=== PATIENT | female | born 1980 | race Caucasian/White ===

== ENCOUNTER → 2016-09-25 | Outpatient (CLI) | payer BC | END | disposition home or self-care (01) | LOC: GMA 20:32 | PROVIDERS: ATTEND Nurse Practitioner Family | DX: R50.9 Fever, unspecified (principal) ==

== ENCOUNTER 2016-09-27 13:15 | Observation (INO) | payer BC ==
--- NOTE | 2016-09-27 15:38 | HP ---
HISTORY OF PRESENT ILLNESS: This 36 year-old white female is direct admitted from Sandi's office at [facility] because of generally feeling very poorly and having a potassium of 2.9. Review of her chart reveals no previous potassiums available on the chart for comparison. She is currently a 3 para 2 and is 19 weeks . There was a question of a temperature of 100.3 earlier but it was not noted while in the hospital after admission. Two days ago she was seen in the clinic and was thought to have a urinary tract infection, and was started on Macrobid. Subsequent to review of the urinalysis and urine culture, revealed no significant bacteriuria. She has also had some nausea and vomiting, generalized malaise and some slight wheezing as well as some joint discomforts with these current symptoms. Her son is also suffering from recurrent Strep infections now being diagnosed as a Strep carrier. The patient is placed in the hospital for parenteral potassium supplementation. At this time, she does not wish to try oral potassium because of the risk of upsetting her stomach. The patient is noted to have had PKU as an enzyme deficiency since and is on a very complex, yet important, program of medications and enzyme supplementations as well as specialized protein supplements in order to help control it and allow the to progress nicely. Her care is cared for by Dr. Franco who is on maternity leave from her practice in [place]. She has also seen Dr. Us , machinery dismantler, as well. PAST MEDICAL HISTORY: 1. Asthma. 2. PKU which requires chronic specialty care. PAST SURGICAL HISTORY: 1. Tonsillectomy and adenoidectomy in 2013. CURRENT MEDICATIONS: Please refer to nurses' notes for a list of verified home medications. ALLERGIES: NONE. FAMILY HISTORY: She is adopted and does not know the other details of the family history. 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 She has never smoked. REVIEW OF SYSTEMS: Weight has been fairly stable, though slightly increasing. HEENT: No hearing or vision disturbances. Some evidence of fever and chills may be related, but some of it could be the hormone surges of with no fever at the present time. LUNGS: Generally clear with occasional wheezing evident. CARDIOVASCULAR: No significant palpitations or chest pains. ABDOMEN: Nausea and vomiting to some degree, though seemingly better. GENITOURINARY: History of recent dysuria and the possibility of a urinary tract infection, though on review of studies shows no specific evidence of a bacteriuria problem at this time recently looked at 2 days ago. Urinalysis today looks good. EXTREMITIES: No significant edema. NEUROLOGIC: The patient is awake, alert and oriented, and communicative with no focal neurological deficits. PHYSICAL EXAMINATION: VITAL SIGNS: Afebrile, pulse 108, blood pressure 127/80, pulse oximetry 98% on room air. GENERAL: The patient is awake, alert and oriented, and communicative. She is complaining of a headache and some generalized malaise symptoms for which she is given a Tylenol. HEENT: Within normal limits. NECK: Supple. CHEST: Lungs are clear. CARDIOVASCULAR: Heart tones regular. ABDOMEN: Slightly tender to palpation especially in the suprapubic area, but she is now approximately 19 weeks and the fundus of the uterus appears to be barely coming out of the pelvis at this time. EXTREMITIES: Well formed. NEUROLOGIC: Within normal limits. LABORATORY: White count is 5,900, hemoglobin 13.3, platelets 225,000 and 83% neutrophils. Chemistry shows sodium low at 132, while glucose is normal at 88, potassium very low at 2.9 with BUN 8, creatinine 0.59. Liver enzymes normal. Albumin 3. Urinalysis shows ketonuria and whether this is a cross testing for the Phenylketonuric state to be determined. Rare bacteria. No WBCs or RBCs noted at this time. No culture obtained. No x-rays obtained. ASSESSMENT: 1. Hypokalemia probable symptomatic with level of 2.9 requiring potassium parenterally as well as orally and reevaluation in the morning. 2. History of Phenylketonuria since now as a mother being closely followed in the clinic of her double cutter and certified driver examiner. 3. Intrauterine currently about 19 weeks of gestation. 4. Nausea and vomiting possibly related to the hypokalemia versus generalized malaise syndrome which may be viral in etiology or just being with attendant symptoms, especially in the deep pelvis suggesting a ligamental symptomatology. PLAN: Will continue with the Phenlyalanine diet and supplementation that she has currently been on at home. Will try some potassium by mouth as well as K- riders. Use Tylenol as needed for pain. Try a soft elevated carb diet with PKU precautions. EKG pending. Try Zofran p.r.n. nausea. Close followup with Dr. Franco or Dr. Us, and to call tomorrow if any questions might persist. Close followup suggested. #[id number] MTDD
[2016-09-27] MEDS ORDERED: ACETAMINOPHEN 325 MG TAB ONE (17:44)
[2016-09-27] MEDS ORDERED: MAGNESIUM HYDROXIDE 30 ML UD PO PRN (18:05)
[2016-09-27] MEDS ORDERED: SODIUM CHLORIDE 0.9% (FLUSH) 10 ML SYG IV PRN (18:05)
[2016-09-27] MEDS ORDERED: ACETAMINOPHEN 325 MG TAB PO PRN (18:05)
[2016-09-27] MEDS ORDERED: ONDANSETRON INJ 4 MG/2 ML VIAL IV PRN (18:17)
[2016-09-27] MEDS ORDERED: KCL 40 MEQ/WATER FOR INJECTION 40 MEQ in PREMIX BAG 1 BAG IVPB ONE (18:17)
[2016-09-27] MEDS: KCL 40MEQ/NS 1,000 ML IVS PRN (18:28)
[2016-09-27] MEDS ORDERED: NUTRITIONAL SUPPLEMENTS PO SCH (18:30)
[2016-09-27] MEDS ORDERED: KCL 40 MEQ/WATER FOR INJECTION 100 ML IVPB ONE (18:30)
[2016-09-27] MEDS ORDERED: IV SET AND CAP CHANGE INJ INJ SCH (18:30)
[2016-09-27] MEDS ORDERED: POTASSIUM CHLORIDE 20 MEQ TAB ONE (18:34)
[2016-09-27] MEDS: POTASSIUM CHLORIDE 10 MEQ TAB PO SCH ×2 (18:36→20:44)
--- NOTE | 2016-09-27 18:45 | PCM.CORE ---
Physician DVT/VTE - Nurse DVT Assessment & Total Each Risk Factor Represents 1 Point: Medical PT at Bed Rest DVT Assessment Score: 1 - 0-1 Low Risk Treatments: Early Ambulation, Low Risk no further treatment or intervention needed - 2 Moderate Risk Treatments: Sequential Compression Device
[2016-09-27] MEDS ORDERED: [UNRECOGNIZED DRUG - OTHER] PO SCH (21:00)
[2016-09-28] MEDS: KCL 40MEQ/NS 1,000 ML IVS PRN (05:31)
[2016-09-28 06:38] VITALS: BP 107/69; TEMP 98.6; O2SAT 96
[2016-09-28] MEDS ORDERED: PRENATAL VIT PO SCH (09:00)
[2016-09-28] MEDS ORDERED: [UNRECOGNIZED DRUG - OTHER] PO SCH (09:00)
[2016-09-28] MEDS ORDERED: FERROUS FUMARA PO SCH (09:00)
[2016-09-28] MEDS ORDERED: POTASSIUM CHLORIDE 10 MEQ TAB PO SCH (12:00)
--- NOTE | 2016-09-28 23:06 | DS ---
SUPERVISING PHYSICIAN: Bala Ortega M.D. DISCHARGE DIAGNOSIS: 1. Hypokalemia, symptomatic with a level of 2.9 requiring parenteral potassium replacement as well as oral replacement with a potassium this morning of 3.6. 2. History of PKU since , now as a mother being closely monitored following in the clinic by her renewals representative as well as her MARKETING SYSTEMS ANALYST. 3. Intrauterine currently about 19 weeks of gestation. 4. Nausea and vomiting probably related to the hypokalemia versus general malaise syndrome that is now normalized. HISTORY OF PRESENT ILLNESS: This is a 36 year-old white female who was directly admitted from [facility] after she had seen Sandi Elizondo, the [facility], for generally feeling poorly and having a potassium of 2.9. She has had no previous history of hypokalemia. She is currently 3 para 2 and is 19 weeks . She had a temperature earlier this week of 100.3 but was afebrile in the hospital. Two days ago, she was seen in the clinic and thought to have a urinary tract infection, and was started on Macrobid. Present urinalysis and urine culture showed no significant bacteriuria. She also had some nausea and vomiting, generalized malaise and some slight wheezing as well as some joint discomforts. Her son is currently suffering from recurrent Strep and was diagnosed as a Strep carrier. She was admitted to the hospital for parenteral potassium supplementation. At the time of admission, she was afraid to take oral potassium supplementation due to the nausea and vomiting. The patient is noted to have a PKU as an enzyme deficiency since and is on a very complex, yet important program of medications and enzyme supplementation as well as a specialized protein supplement in order to help control it and allow the to progress nicely. Her care is followed by Dr. Franco in [place]. She is presently on maternity leave and she has been seeing Dr. Us. HOSPITAL COURSE: The patient responded well to the IV supplementation as well as antiemetics. She was given some fluids. Later she was given some oral potassium and this morning her potassium is 3.6. Sodium 134. At this point, she can be discharged home. DISCHARGE PLAN: I spoke with Dr. Ram, ship rigger who is lamination technician for Dr. Us this morning. We discussed her discharge plan and followup. We will discharge her on Micro-K 10 mEq b.i.d. until she has a followup with Dr. Us on October 14. She will repeat a BMP to check her potassium in 7 to 10 days. She is also to resume her previous diet as well as her previous medications. She is to call Dr. Us's office or return to the hospital for any further complications or problems. Dr. Ortega is the collaborating physician and available for consultation. #[id number] MTDD
== END 2016-09-28 10:35 | disposition home or self-care (01) ==
LOC: LAB.O 13:15 → MS 15:10 → INTOOBSV 15:10
PROVIDERS: ADMIT Emergency Medicine; ATTEND Nurse Practitioner Acute Care
DX: O99.282 Endocrine, nutritional and metabolic diseases complicating pregnancy, second trimester (principal); E87.6 Hypokalemia; O21.8 Other vomiting complicating pregnancy; R50.9 Fever, unspecified; E70.1 Other hyperphenylalaninemias; J45.909 Unspecified asthma, uncomplicated; Z3A.19 19 weeks gestation of pregnancy
CPT/HCPCS: 36415 ×2; 80048; 80053; 81001; 85025; 93005; 96365; 96366 ×2; 96376; J3480 ×3

== ENCOUNTER → 2016-10-18 | Outpatient (CLI) | payer BC | END | disposition home or self-care (01) | LOC: LAB.O 13:30 | PROVIDERS: ATTEND Nurse Practitioner Acute Care | DX: E87.6 Hypokalemia (principal) ==

== ENCOUNTER → 2018-06-18 | Outpatient (CLI) | payer BC | LOC: GMAE 16:49 | PROVIDERS: ATTEND Family Medicine | DX: R63.5 Abnormal weight gain (principal) ==

== ENCOUNTER → 2018-07-23 | Outpatient (CLI) | payer BC | LOC: LAB.O 13:44 | PROVIDERS: ATTEND Medical Genetics Clinical Genetics (M.D.) | DX: E70.0 Classical phenylketonuria (principal) ==

== ENCOUNTER 2018-08-10 04:46 | Emergency (ER) | payer BC ==
[2018-08-10 05:02] VITALS: TEMP 98.4
--- NOTE | 2018-08-10 05:28 | ED.PDOC ---
History of Present Illness - General Source: patient Exam Limitations: no limitations - History of Present Illness Initial Comments: the patient is a 38-year-old female with a history of PKU presenting with right upper quadrant pain that has been intermittent over the last 3 or 4 nights, worse tonight. Mild nausea but no vomiting. No syncope or near syncope. No fevers. No diarrhea or constipation according to her. It is a little worse with movement. Questionably worse with eating. She does still have her gallbladder. No jaundice. No history of any gastritis or duodenitis. No history of significant urinary tract infections. No history of any diverticulitis. Timing/Duration: unsure Severity: moderate Improving Factors: nothing Worsening Factors: movement Associated Symptoms: malaise <Jake Ortega - Last Filed: 08/10/18 06:37> <Surjit Andrews - Last Filed: 08/10/18 09:09> - General Chief Complaint: Abdominal Pain Stated Complaint: rt side abd pain Time Seen by Provider: 08/10/18 05:07 - History of Present Illness Allergies/Adverse Reactions: Allergies NO KNOWN ALLERGY Allergy (Verified 08/15/12 13:50) Home Medications: Ambulatory Orders Sapropterin Dihydrochloride [Kuvan] 1,800 mg PO DAILY 09/29/13 Fluticasone Prop 0.05% Nasal [Flonase Nasal Tornado] 1 spray BNAS PRN 08/10/18 Lansoprazole [Prevacid] 30 mg PO DAILY #30 cap 08/10/18 Polyethylene Glycol 3350 [Miralax] 17 gm PO DAILY 20 Days #20 pckt 08/10/18 Review of Systems - Review of Systems Constitutional: States: no symptoms reported EENTM: States: no symptoms reported Respiratory: States: no symptoms reported Cardiology: States: no symptoms reported Gastrointestinal/Abdominal: States: abdominal pain, nausea Genitourinary: States: no symptoms reported Musculoskeletal: States: no symptoms reported Skin: States: no symptoms reported Neurological: States: no symptoms reported Endocrine: States: no symptoms reported All other Systems: No Change from Baseline <Jake Ortega - Last Filed: 08/10/18 06:37> Past Medical History (General) - Patient Medical History Hx Seizures: No Hx Stroke: No Hx Asthma: Yes - Chronic bronchitis. Hx of COPD: No Hx Congestive Heart Failure: No Hx Pacemaker: No Hx Hypertension: No Hx Diabetes: No Hx Renal Disease: No Hx MRSA: No Surgical History: tonsillectomy - Vaccination History Hx Influenza Vaccination: No - Social History Hx Alcohol Use: No Hx Substance Use: No Hx Physical Abuse: No Hx Emotional Abuse: No - Female History Hx Last Menstrual Period: 02/07/14 Patient : No Expected Date of Delivery:: 11/14/13 - Triage Comment ED Triage Comment: Pain on/off for past week. Worse today <Jake Ortega - Last Filed: 08/10/18 06:37> Family Medical History - Family History Mother Hx Family;Other: Pt is adopted, no known biological history. <Jake Ortega - Last Filed: 08/10/18 06:37> Physical Exam - Physical Exam General Appearance: Alert, Other - she is obviously uncomfortable Eye Exam: bilateral normal Ears, Nose, Throat: hearing grossly normal, normal ENT inspection Neck: full range of motion, supple Respiratory: lungs clear, normal breath sounds, no respiratory distress, no accessory muscle use Cardiovascular/Chest: normal peripheral pulses, regular rate, rhythm, no edema Peripheral Pulses: radial,right: 2+, radial,left: 2+, dorsalis pedis,right: 2+, dorsalis pedis,left: 2+ Gastrointestinal/Abdominal: soft, other - she does have right upper quadrant discomfort palpation. Worse with inhalation. Worse with movement. No bruising of the abdominal wall. No significant pain elsewhere. Rectal Exam: deferred Back Exam: no CVA tenderness, no vertebral tenderness Extremity: non-tender, normal inspection, no pedal edema, normal capillary refill Neurologic: design supervisor II-XII nml as tested, alert, normal mood/affect, oriented x 3 Skin Exam: normal color Comments: Vital Signs - 24 hr 08/10/18 04:58 Temperature 98.4 F Pulse Rate [ 81 Right] Respiratory 20 Rate Blood Pressure 128/80 [Left Arm] O2 Sat by Pulse 100 Oximetry <Jake Ortega - Last Filed: 08/10/18 06:37> Progress - Progress Progress: 08/10/18 06:40 the patient is a 38-year-old female presented to the emergency room secondary to right upper quadrant pain. CBC, CMP and coags, aside from mild hypokalemia are reassuring. She is receiving a dose of oral potassium. Final read on acute abdominal series is pending however there is a fairly large stool burden to the ascending and transverse colon which could certainly be a source for pain. if the urinalysis comes back clear, I'll plan on ordering a right upper quadrant ultrasound given the focal nature of the pain. Care to be assumed by oncoming ER physician. <Jake Ortega L - Last Filed: 08/10/18 06:37> - Results/Orders Results/Orders: Laboratory Results WBC 6.3 K/mm3 (4.8-10.8) 08/10/18 05:30 RBC 4.58 M/mm3 (4.20-5.40) 08/10/18 05:30 Hgb 13.4 gm/dL (12.0-16.0) 08/10/18 05:30 Hct 41.4 % (36.0-47.0) 08/10/18 05:30 MCV 90.2 fl (81.0-99.0) 08/10/18 05:30 MCH 29.3 pg (27.0-31.0) 08/10/18 05:30 MCHC 32.5 g/dL (33.0-37.0) L 08/10/18 05:30 RDW 13.9 % (11.5-14.5) 08/10/18 05:30 Plt Count 317 K/mm3 (130-400) 08/10/18 05:30 MPV 8.0 fl (7.40-10.4) 08/10/18 05:30 Absolute Neuts (auto) 3.80 K/uL (1.8-6.8) 08/10/18 05:30 Absolute Lymphs (auto) 1.70 K/uL (1.0-3.4) 08/10/18 05:30 Absolute Monos (auto) 0.50 K/uL (0.2-0.8) 08/10/18 05:30 Absolute Eos (auto) 0.30 K/uL (0.0-0.4) 08/10/18 05:30 Absolute Basos (auto) 0.10 K/uL (0.0-0.1) 08/10/18 05:30 Neutrophils % 60.2 % (42.0-78.0) 08/10/18 05:30 Lymphocytes % 26.5 % (20.0-50.0) 08/10/18 05:30 Monocytes % 7.9 % (2.0-9.0) 08/10/18 05:30 Eosinophils % 4.3 % (1.0-5.0) 08/10/18 05:30 Basophils % 1.1 % (0.0-2.0) 08/10/18 05:30 PT 9.7 SECONDS (9.0-10.9) 08/10/18 05:30 INR 0.97 (0.9-1.15) 08/10/18 05:30 PTT (SP) 24.6 SECONDS (21.8-31.6) 08/10/18 05:30 Sodium 136 mmol/L (135-145) 08/10/18 05:30 Potassium 3.2 mmol/L (3.6-5.0) L 08/10/18 05:30 Chloride 103 mmol/L (101-111) 08/10/18 05:30 Carbon Dioxide 25 mmol/L (21-31) 08/10/18 05:30 Anion Gap 11.2 (12-18) L 08/10/18 05:30 BUN 15 mg/dL (7-18) 08/10/18 05:30 Creatinine 0.61 mg/dL (0.6-1.3) 08/10/18 05:30 BUN/Creatinine Ratio 24.6 (10-20) H 08/10/18 05:30 Random Glucose 103 mg/dL (70-105) 08/10/18 05:30 Serum Osmolality 273.0 mOsm/L (275-295) L 08/10/18 05:30 Lactic Acid 1.4 mmol/L (0.5-2.2) 08/10/18 05:30 Calcium 9.0 mg/dL (8.4-10.2) 08/10/18 05:30 Total Bilirubin 0.3 mg/dL (0.2-1.0) 08/10/18 05:30 AST 16 IU/L (10-42) 08/10/18 05:30 ALT 14 IU/L (10-60) 08/10/18 05:30 Alkaline Phosphatase 44 IU/L (42-121) 08/10/18 05:30 Serum Total Protein 6.8 gm/dL (6.4-8.2) 08/10/18 05:30 Albumin 3.9 g/dl (3.2-5.5) 08/10/18 05:30 Globulin 2.9 gm/dL (2.3-3.5) 08/10/18 05:30 Albumin/Globulin Ratio 1.3 (1.1-1.9) 08/10/18 05:30 Amylase 57 U/L (28-100) 08/10/18 05:30 Lipase 35 U/L (22-51) 08/10/18 05:30 Serum HCG, Qual Negative (NEGATIVE) 08/10/18 05:54 Urine Color Yellow (Yellow) 08/10/18 07:00 Urine Appearance Turbid (Clear) 08/10/18 07:00 Urine pH 7.0 (4.5-7.8) 08/10/18 07:00 Ur Specific Pearson 1.020 (1.005-1.030) 08/10/18 07:00 Urine Protein Negative mg/dL 08/10/18 07:00 Urine Glucose (UA) Negative mg/dL (Negative) 08/10/18 07:00 Urine Ketones Negative mg/dL (NEGATIVE) 08/10/18 07:00 Urine Blood Negative (Negative) 08/10/18 07:00 Urine Nitrite Negative 08/10/18 07:00 Urine Bilirubin Negative (NEGATIVE) 08/10/18 07:00 Urine Urobilinogen 0.2 mg/dL (0.2-1.0) 08/10/18 07:00 Ur Leukocyte Esterase Negative (Negative) 08/10/18 07:00 Urine RBC 0-1 /hpf 08/10/18 07:00 Urine WBC 0-1 /hpf 08/10/18 07:00 Ur Epithelial Cells 0-1 /hpf 08/10/18 07:00 Urine Bacteria 0 08/10/18 07:00 THE PATIENT RESTING COMFORTABLY. GALLBLADDER SONOGRAM HAS BEEN ORDERED-IN [place] [facility]. GALLBLADDER SONOGRAM IS NEGATIVE FOR ACUTE PROCESS. THE PATIENT WILL BE DISCHARGED WITH A PPI AND F/U WITH DR. WETZEL. WILL CONSIDER HIDA SCAN AND ENDOSCOPY IF SYMPTOMS PERSIST. <Surjit Andrews - Last Filed: 08/10/18 09:09> Departure <Jake Ortega - Last Filed: 08/10/18 06:37> - Departure Time of Disposition: 09:05 <Surjit Andrews - Last Filed: 08/10/18 09:09> - Departure Clinical Impression: Hypokalemia Constipation Qualifiers: Constipation type: unspecified constipation type Qualified Code(s): K59.00 - Constipation, unspecified Gastritis Qualifiers: Gastritis type: unspecified gastritis Disposition: Discharge to Home or Self Care Condition: Fair Departure Forms: ED Discharge - Pt. Copy, Patient Portal Self Enrollment Instructions: DI for Abdominal Pain-Adult Referrals: POLI WETZEL MD [Primary Care Provider] - 1-2 Weeks Prescriptions: Lansoprazole [Prevacid] 30 mg PO DAILY #30 cap Polyethylene Glycol 3350 [Miralax] 17 gm PO DAILY 20 Days #20 pckt Home Medications: Ambulatory Orders Sapropterin Dihydrochloride [Kuvan] 1,800 mg PO DAILY 09/29/13 Fluticasone Prop 0.05% Nasal [Flonase Nasal Tornado] 1 spray BNAS PRN 08/10/18 Lansoprazole [Prevacid] 30 mg PO DAILY #30 cap 08/10/18 Polyethylene Glycol 3350 [Miralax] 17 gm PO DAILY 20 Days #20 pckt 08/10/18
[2018-08-10] MEDS ORDERED: PROMETHAZINE HCL INJ 25 MG/ML VIAL ONE (05:32)
[2018-08-10] MEDS ORDERED: LIDOCAINE HCL 2% (MOUTH-THROAT) 15 ML UD ONE (05:32)
[2018-08-10] MEDS ORDERED: ALUM & MAG HYDROX-SIMETHICONE 30 ML UD ONE (05:32)
[2018-08-10] MEDS ORDERED: SODIUM CHLORIDE 0.9% 50ML 50 ML ONE (05:32)
[2018-08-10] MEDS: SODIUM CHLORIDE 0.9% 1000ML 1,000 ML IVS ONE (05:41)
[2018-08-10] MEDS: ALUM & MAG HYDROX-SIMETHICONE 30 ML, LIDOCAINE VISCOUS 2% 15 ML PO ONE ×2 (05:41)
[2018-08-10] MEDS: KETOROLAC TROMETHAMINE INJ 30 MG/ML VIAL IV ONE (05:42)
[2018-08-10] MEDS: PROMETHAZINE HCL INJ 25 MG in SODIUM CHLORIDE 0.9% 50ML 50 ML IVPB ONE (05:42)
[2018-08-10] MEDS: ONDANSETRON ODT 8 MG TAB SL ONE (05:43)
[2018-08-10] MEDS: POTASSIUM CHLORIDE ELIXIR 20 MEQ/15 ML UD PO ONE (06:53)
--- NOTE | 2018-08-10 06:54 | RAD ---
EXAM: Acute abdominal series. INDICATION: Abdominal pain, acute. COMPARISON: None. FINDINGS: Cardiac silhouette: Unremarkable. Ivelisse: Unremarkable. Lobar consolidation: None. Pleural effusion: None. Pneumothorax: None. Other: None. Intraperitoneal free air: Negative. Bowel: No dilated loops of small bowel or air-fluid levels. There is a large amount of stool within the colon. Bones: Unremarkable. Other: None. IMPRESSION: Nonspecific, nonobstructed bowel gas pattern. Large amount of stool within the colon. Electronically signed by: Jackson Us MD 08/10/2018 6:52 AM CDT Workstation: [id number]
--- NOTE | 2018-08-10 08:52 | US ---
EXAM DESCRIPTION: Gall Bladder sonogram right upper quadrant CLINICAL HISTORY: RUQ PAIN COMPARISON: None Available. TECHNIQUE: Right upper quadrant ultrasound was performed. FINDINGS: Pancreas: Visualized portions of the pancreas are unremarkable. Bowel gas obscures some areas. Aorta/inferior vena cava: No aortic aneurysm. Normal inferior vena cava. Liver: The liver is homogeneous in texture with normal echogenicity of the hepatic parenchyma. Liver length of 16.8 cm is within normal limits. No focal liver lesion or intrahepatic bile duct dilatation. No liver surface irregularity. Normal appearance of the portal vein and hepatic veins. Gallbladder: Gallbladder appears normal with no intraluminal stones or wall thickening. Common bile duct: Normal caliber measuring 2.8 mm. Right kidney: Renal length is 11.2 cm. Normal cortical echogenicity. Cortical thickness is normal. No hydronephrosis is seen. No renal mass or shadowing calculus. IMPRESSION: No diagnostic abnormality is identified on sonographic examination of the right upper quadrant. Electronically signed by: Jose Aiken MD 08/10/2018 8:50 AM CDT
[2018-08-10 09:20] VITALS: BP 111/72; O2SAT 97
== END 2018-08-10 09:19 | disposition home or self-care (01) ==
LOC: ER 04:46
DX: K29.70 Gastritis, unspecified, without bleeding (principal); K59.00 Constipation, unspecified; E87.6 Hypokalemia; Z79.899 Other long term (current) drug therapy
CPT/HCPCS: 36415; 74019; 76705; 80053; 81001; 82150; 83605; 83690; 84703; 85025; 85610; 85730; A4216; J1885; J2550; J7030

== ENCOUNTER 2018-08-24 13:39 | Observation (INO) | payer BC ==
[2018-08-24] MEDS ORDERED: PIPERACILLIN/TAZOBACTAM 3.375 GM in SODIUM CHLORIDE 0.9% 100ML 100 ML IVPB ONE (14:58)
[2018-08-24] MEDS ORDERED: SODIUM CHLORIDE 0.9% 1000ML 1,000 ML IVS ONE (14:58)
[2018-08-24] MEDS ORDERED: KETOROLAC TROMETHAMINE INJ 30 MG/ML VIAL IV ONE (15:09)
[2018-08-24] MEDS ORDERED: PIPERACILLIN/TAZOBACTAM 3.375 GM VIAL IVPB ONE ×3 (15:11→20:01)
[2018-08-24] MEDS ORDERED: SODIUM CHLORIDE 0.9% 100ML 100 ML IVPB ONE ×2 (15:11→19:15)
--- NOTE | 2018-08-24 15:23 | RAD ---
EXAM: XR Abdomen 2 Views With XR Chest CLINICAL HISTORY: 38 years old and is Female; epigastric/ruq pain TECHNIQUE: Frontal view of the chest, frontal view of the abdomen/pelvis and upright or decubitus view of the abdomen. COMPARISON: No relevant prior studies available. FINDINGS: Limitations: None. Lungs: Unremarkable. No consolidation. Pleural space: Unremarkable. No pneumothorax. Heart: Unremarkable. No cardiomegaly. Mediastinum: Unremarkable. Intraperitoneal space: No free air. Gastrointestinal tract: Moderate colonic stool present sparing the rectosigmoid and proximal right colon. No distention. Bones/joints: Unremarkable. IMPRESSION: No acute findings. Electronically signed by: Ivette Mcneil MD 08/24/2018 3:21 PM CDT
--- NOTE | 2018-08-24 16:30 | CT ---
EXAM DESCRIPTION: Abdomen/Pelvis w/Contrast CLINICAL HISTORY: ruq pain, increased lft's COMPARISON: None Available TECHNIQUE: Contiguous axial images of the abdomen and pelvis were obtained followed by reconstruction images. This exam was performed according to our departmental dose-optimization program, which includes automated exposure control, adjustment of the mA and/or kV according to patient size and/or use of iterative reconstruction technique. FINDINGS: There is a small gallstone within the dependent portion of the gallbladder. Mild periportal edema could be secondary to avid administration of intravenous fluid. Mild intrahepatic bile duct dilatation is a consideration however considered less likely. Punctate areas of increased attenuation within the kidneys compatible with nonobstructive renal stones. Air-fluid levels within the colon could be secondary to a diarrheal state. Calcifications within the pelvis compatible with phlebolith. Cecum is located at the right mid abdomen. 2 cm cyst within the left adnexa compatible with an ovarian cyst. As per RP best practice protocol, no further follow-up recommended. The liver, spleen, pancreas and kidneys are otherwise within normal limits. There is no hydronephrosis. Adrenal glands are within normal limits. Aorta is of normal caliber and tapering. There is no free fluid in the abdomen or pelvis. There is no bowel obstruction. There is no stranding of the mesenteric fat to suggest an inflammatory response. The appendix is within normal limits. There is no pericecal inflammation. IMPRESSION: Cholelithiasis. The gallbladder is otherwise unremarkable by CT criteria. Correlation with a sonogram could be helpful for further evaluation. Air-fluid levels within the colon could be secondary to a diarrheal state. Electronically signed by: Aleks Jain MD 08/24/2018 4:28 PM CDT
--- NOTE | 2018-08-24 17:31 | ED.PDOC ---
History of Present Illness - General Chief Complaint: Abdominal Pain Stated Complaint: abdominal pain Time Seen by Provider: 08/24/18 13:46 Source: patient Exam Limitations: no limitations - History of Present Illness Initial Comments: the patient's 38-year-old female presenting to the emergency room secondary to right upper quadrant pain that started again this morning at around 7 AM. She was seen 2 weeks ago for similar symptoms. Laboratory work at that time was unimpressive and a right upper quadrant ultrasound was negative. No fevers. Mild nausea. Pain is localized to the right upper quadrant. No history of any significant gallstones. No pain elsewhere. Timing/Duration: 4-6 hours Severity: moderate Improving Factors: nothing Worsening Factors: eating Associated Symptoms: denies symptoms Allergies/Adverse Reactions: Allergies NO KNOWN ALLERGY Allergy (Verified 08/15/12 13:50) Home Medications: Ambulatory Orders Sapropterin Dihydrochloride [Kuvan] 1,800 mg PO DAILY 09/29/13 Fluticasone Prop 0.05% Nasal [Flonase Nasal [place]] 1 spray BNAS PRN 08/10/18 Lansoprazole [Prevacid] 30 mg PO DAILY #30 cap 08/10/18 Review of Systems - Review of Systems Constitutional: States: no symptoms reported EENTM: States: no symptoms reported Respiratory: States: no symptoms reported Cardiology: States: no symptoms reported Gastrointestinal/Abdominal: States: see HPI Genitourinary: States: no symptoms reported Musculoskeletal: States: no symptoms reported Skin: States: no symptoms reported Neurological: States: no symptoms reported Endocrine: States: no symptoms reported All other Systems: No Change from Baseline Past Medical History (General) - Patient Medical History Hx Seizures: No Hx Stroke: No Hx Asthma: Yes - Chronic bronchitis. Hx of COPD: No Hx Congestive Heart Failure: No Hx Pacemaker: No Hx Hypertension: No Hx Diabetes: No Hx Renal Disease: No Hx MRSA: No Surgical History: tonsillectomy - Vaccination History Hx Influenza Vaccination: No - Social History Hx Tobacco Use: No Hx Alcohol Use: No Hx Substance Use: No Hx Physical Abuse: No Hx Emotional Abuse: No - Female History Hx Last Menstrual Period: 02/07/14 Patient : No Expected Date of Delivery:: 11/14/13 Family Medical History - Family History Mother Family History: Unknown Hx Family;Other: Pt is adopted, no known biological history. Physical Exam - Physical Exam General Appearance: Alert, No apparent distress Eye Exam: bilateral normal Ears, Nose, Throat: hearing grossly normal, normal ENT inspection Neck: full range of motion, supple Respiratory: lungs clear, normal breath sounds, no respiratory distress, no accessory muscle use Cardiovascular/Chest: normal peripheral pulses, regular rate, rhythm, no edema Peripheral Pulses: radial,right: 2+, radial,left: 2+ Gastrointestinal/Abdominal: soft, other - right upperquadrant discomfort palpation. No definite palpable mass. Rectal Exam: deferred Back Exam: normal inspection, no CVA tenderness, no vertebral tenderness Extremity: normal range of motion, non-tender, normal inspection, no pedal edema, normal capillary refill Neurologic: spice grinder II-XII nml as tested, alert, normal mood/affect, oriented x 3 Skin Exam: normal color Comments: Vital Signs - 24 hr 08/24/18 08/24/18 08/24/18 13:51 14:00 15:00 Temperature 98.0 F Pulse Rate [ 74 61 75 left brachial] Respiratory 16 16 16 Rate Blood Pressure 125/71 119/75 131/80 [left brachial] O2 Sat by Pulse 99 95 99 Oximetry 08/24/18 15:30 Temperature Pulse Rate [ 73 left brachial] Respiratory 16 Rate Blood Pressure 96/59 [left brachial] O2 Sat by Pulse 98 Oximetry Progress - Progress Progress: 08/24/18 17:31 the patient's 38-year-old female that appears to have mild acute cholecystitis. She is being started on Zosyn. She has received a liter of IV fluids and some pain medications. CT scan was unimpressive which hopefully means we are catching it early. She may benefit from a right upper quadrant ultrasound tomorrow. She will need to remain on a liquid diet. Dr. Alegre has been contacted. The patient will be admitted for continued antibiotics and management. - Results/Orders Results/Orders: CT scan of abdomen and pelvisshows no obvious gallbladder dilation. No obvious dilation of the bile ducts. No pericholecystic fluid. Laboratory Tests 08/24/18 08/24/18 08/24/18 14:11 14:11 14:18 WBC 10.5 RBC 4.60 Hgb 13.6 Hct 40.8 MCV 88.7 MCH 29.6 MCHC 33.4 RDW 13.7 Plt Count 308 MPV 7.7 Absolute Neuts (auto) 9.30 H Absolute Lymphs (auto) 0.60 L Absolute Monos (auto) 0.50 Absolute Eos (auto) 0.00 Absolute Basos (auto) 0.00 Neutrophils % 88.8 H Lymphocytes % 5.5 L Monocytes % 5.1 Eosinophils % 0.1 L Basophils % 0.5 Sodium 134 L Potassium 3.7 Chloride 103 Carbon Dioxide 22 Anion Gap 12.7 BUN 13 Creatinine 0.64 BUN/Creatinine Ratio 20.3 H Random Glucose 118 H Serum Osmolality 269.4 L Calcium 8.6 Total Bilirubin 1.6 H AST 363 H ALT 275 H Alkaline Phosphatase 67 Serum Total Protein 7.1 Albumin 3.9 Globulin 3.2 Albumin/Globulin Ratio 1.2 Amylase 48 Lipase 35 Serum HCG, Qual Negative Urine Color Urine Appearance Urine pH Ur Specific [place] Urine Protein Urine Glucose (UA) Urine Ketones Urine Blood Urine Nitrite Urine Bilirubin Urine Urobilinogen Ur Leukocyte Esterase Urine RBC Urine WBC Ur Epithelial Cells Urine Bacteria Urine HCG, Qual Cancelled 08/24/18 16:00 WBC RBC Hgb Hct MCV MCH MCHC RDW Plt Count MPV Absolute Neuts (auto) Absolute Lymphs (auto) Absolute Monos (auto) Absolute Eos (auto) Absolute Basos (auto) Neutrophils % Lymphocytes % Monocytes % Eosinophils % Basophils % Sodium Potassium Chloride Carbon Dioxide Anion Gap BUN Creatinine BUN/Creatinine Ratio Random Glucose Serum Osmolality Calcium Total Bilirubin AST ALT Alkaline Phosphatase Serum Total Protein Albumin Globulin Albumin/Globulin Ratio Amylase Lipase Serum HCG, Qual Urine Color Yellow Urine Appearance Clear Urine pH 8.5 H Ur Specific [place] 1.015 Urine Protein Negative Urine Glucose (UA) Negative Urine Ketones Negative Urine Blood Negative Urine Nitrite Negative Urine Bilirubin Negative Urine Urobilinogen 0.2 Ur Leukocyte Esterase Negative Urine RBC 0 Urine WBC 0 Ur Epithelial Cells 3-5 Urine Bacteria Rare Urine HCG, Qual Departure - Departure Clinical Impression: Acute cholecystitis Disposition: Admit Patient Condition: Fair Departure Forms: ED Discharge - Pt. Copy, Patient Portal Self Enrollment Referrals: POLI WETZEL MD [Primary Care Provider] - 1-2 Weeks Home Medications: Ambulatory Orders Sapropterin Dihydrochloride [Kuvan] 1,800 mg PO DAILY 09/29/13 Fluticasone Prop 0.05% Nasal [Flonase Nasal [place]] 1 spray BNAS PRN 08/10/18 Lansoprazole [Prevacid] 30 mg PO DAILY #30 cap 08/10/18 Decision To Admit - Decistion To Admit Decision to Admit Reason: Medical Nature Decision to Admit Date: 08/24/18 Decision to Admit Time: 17:33
[2018-08-24] MEDS ORDERED: MORPHINE SULFATE INJ 10 MG/ML VIAL IV ONE (17:33)
--- NOTE | 2018-08-24 17:43 | HP ---
SUPERVISING PHYSICIAN: Fredi Evans M.D. CHIEF COMPLAINT: Right upper quadrant abdominal pain. HISTORY OF PRESENT ILLNESS: This is a 38 year-old female patient who presented to the Emergency Room secondary to right upper quadrant pain that started early this morning about 5:00 AM. She had actually been in the Emergency Room about 2 weeks ago and had similar complaints. At that time her sonogram was negative and she also had about 3 to 4 episodes. When she came to be Emergency Room this time, it started early this morning and the pain did not go away. She had some nausea without vomiting. There was no fever or chills. The right upper quadrant of her abdomen was quite tender with stabbing-like pains. In the E. R., her lab was done and WBCs were 10.5 with hemoglobin 13.6, hematocrit 40.8. She did have a left shift on her differential. Chemistries showed sodium 134, potassium 3.7, chloride 103, calcium 8.6. Total bilirubin was 1.6, AST 363, ALT 275, amylase 48 and lipase 35. Urinalysis was unremarkable. Abdominal x-ray showed no acute findings. CT of the abdomen showed cholelithiasis. The gallbladder was otherwise unremarkable by CT criteria. Correlation with sonogram could be helpful. She was given some Zosyn as well as some fluids. She was also given 1 IV injection of Toradol as well as some morphine. The Emergency Room doctor called Dr. Alegre and he said he would see the patient in consultation. I was called for hospital admission. PAST MEDICAL HISTORY: 1. Asthma. 2. PKU which she takes medications daily for. PAST SURGICAL HISTORY: 1. Tonsillectomy. CURRENT MEDICATIONS: 1. Fexofenadine. 2. Lansoprazole. 3. Fluticasone nasal. 4. Kuvan. ALLERGIES: FAMILY HISTORY: Unknown. She is adopted. SOCIAL HISTORY: She is . She lives in [place]. She denies any tobacco, ETOH or illicit drug use. REVIEW OF SYSTEMS: GENERAL: Negative for fever, chills or weight changes. HEENT: Negative for sinus symptoms, ear pain, vision changes or sore throat. RESPIRATORY: Negative for shortness of breath, coughing or wheezing. CARDIAC: Negative for chest pains, palpitations or tachycardia. GASTROINTESTINAL: As per History of Present Illness. GENITOURINARY: Negative for hematuria, dysuria or polyuria. SKIN: Negative for lesions or rashes. HEMATOLOGIC: Negative for easy bruising or blood clotting problems. NEUROLOGIC: Negative for headaches, seizures or dizziness. PHYSICAL EXAMINATION: VITAL SIGNS: Temperature 98.1, heart rate 74, blood pressure 113/73, respiratory rate 16, O2 sat 97% on room air. GENERAL: This is a 38 year-old female patient lying in her hospital bed. She is in no acute distress. HEENT: Normocephalic and atraumatic. Pupils are equal and reactive. Oropharynx is clear. NECK: Supple without mass. RESPIRATORY: Essentially clear to auscultation bilaterally. CHEST: There is equal rise and fall of the chest with inspiration and expiration. CARDIOVASCULAR: Regular rate and rhythm. GASTROINTESTINAL: Abdomen is soft. It is nondistended. She has some discomfort when palpating the right upper quadrant. There is no rebound tenderness or guarding. EXTREMITIES: No clubbing, cyanosis or edema. SKIN: Warm and dry. NEUROLOGIC: She is awake, alert and oriented times three. Cranial nerves II- XII are grossly intact. LABORATORY: Labs and films are as per the History of Present Illness. ASSESSMENT: 1. Cholelithiasis with a normal amylase and lipase. Her liver enzymes are slightly elevated. She has a normal white count but she does have a left shift on her differential. 2. Phenylketonuria requiring special medication. 3. Mild asthma presently on no medications. 4. Seasonal allergies. PLAN: We will place the patient in Observation. She can have a bland diet tonight but she will be NPO at midnight. I have consulted Dr. Alegre and he will decide if she needs a sonogram in the morning. I have done routine lab and put her on a scheduled dose of Toradol for pain. I have also given her some p.r.n. morphine. She will have primary IV fluids. I have also given her Protonix for ulcer prophylaxis. Will hold on the Lovenox for now, but will give her SCDs for DVT prophylaxis. Her home medications have been restarted. She can discuss with Dr. Alegre in the morning when she will be able to take her medications for her PKU. Otherwise we will continue to monitor closely and follow as needed. [facility][id number] [facility]
[2018-08-24] MEDS ORDERED: LORATADINE 10 MG TAB PO PRN (19:06)
[2018-08-24] MEDS: KCL 20MEQ/D5NS 1,000 ML IVS PRN (19:29)
[2018-08-24] MEDS: IV SET AND CAP CHANGE INJ INJ SCH (19:30)
[2018-08-24] MEDS: SODIUM CHLORIDE 0.9% (FLUSH) 10 ML SYG IV SCH (19:30)
[2018-08-24] MEDS ORDERED: FLUTICASONE PROP 0.05% NASAL 16 GM BTTL BNAS SCH (19:30)
[2018-08-24] MEDS: PIPERACILLIN/TAZOBACTAM 3.375 GM in SODIUM CHLORIDE 0.9% 100ML 100 ML IVPB SCH (19:30)
[2018-08-24] MEDS ORDERED: SODIUM CHL 0.9% 100ML MINI-BAG 100 ML IVPB ONE (20:02)
[2018-08-24] MEDS: KETOROLAC TROMETHAMINE INJ 30 MG/ML VIAL IV SCH (22:23)
[2018-08-24] MEDS ORDERED: PANTOPRAZOLE SODIUM TAB 40 MG PO ONE (23:30)
[2018-08-25] MEDS: PIPERACILLIN/TAZOBACTAM 3.375 GM in SODIUM CHLORIDE 0.9% 100ML 100 ML IVPB SCH ×3 (03:02→19:23)
[2018-08-25] MEDS: KETOROLAC TROMETHAMINE INJ 30 MG/ML VIAL IV SCH ×3 (03:39→15:57)
[2018-08-25] MEDS ORDERED: PANTOPRAZOLE SODIUM IV 40 MG VIAL IV SCH (06:30)
[2018-08-25] MEDS: SODIUM CHLORIDE 0.9% (FLUSH) 10 ML SYG IV SCH ×2 (09:11→21:13)
[2018-08-25] MEDS: [UNRECOGNIZED DRUG - OTHER] PO SCH (09:11)
--- NOTE | 2018-08-25 09:51 | CONS ---
DATE OF CONSULTATION: 08/25/18 HISTORY OF PRESENT ILLNESS: The patient is a 38-year-old female who was seen in the Emergency Room yesterday evening after a recurrence of right upper quadrant abdominal pain yesterday morning. She had been in the Emergency Room 2 weeks ago with similar complaints and had a negative ultrasound of the abdomen. She has had multiple episodes since. With this episode, she has had some nausea without vomiting, but no fever or chills. She underwent a CT scan that showed possible cholelithiasis and possible minimal dilation of the intrahepatic biliary tree. PAST MEDICAL HISTORY: 1. PKU. 2. Asthma. PAST SURGICAL HISTORY: 1. Tonsillectomy. MEDICATIONS: 1. Fexofenadine. 2. Lansoprazole. 3. Fluticasone. 4. Kuvan. ALLERGIES: NO KNOWN DRUG ALLERGIES. FAMILY HISTORY: She is adopted. SOCIAL HISTORY: She is . She takes care of her children at home. She does not use tobacco, alcohol or drugs. She has had no travel outside the country. She has city water and she is on her low-protein diet for her PKU. She eats high carbs and high fat. There has been no change in her diet. REVIEW OF SYSTEMS: Unremarkable. Specifically, no shortness of breath, cough or wheezing. No chest pain. No hematuria, dysuria. No change in her bowel habits. No weight loss. PHYSICAL EXAMINATION: GENERAL: The patient is awake, alert, cooperative, in no acute distress. VITAL SIGNS: The patient is currently afebrile, normotensive. HEENT: Sclerae are muddy. Mucous membranes moist. NECK: Without adenopathy. BACK: Without CVA tenderness. CHEST: Equal breath sounds bilaterally. HEART: Regular rhythm. ABDOMEN: Soft, tender in the right upper quadrant without guarding or mass. PELVIC/RECTAL: Deferred. EXTREMITIES: Without cyanosis, clubbing or edema. LABORATORY: Bilirubin 3 this morning. It was 1.6 in the Emergency Room. AST 1259 and ALT 1464, up from 363 and 275. Her amylase and lipase were normal. HCG normal. Potassium 3.6 this morning. Creatinine 0.57. White count 4.9, hemoglobin 13, 67% neutrophils. Urine is clear. CT scan of the abdomen revealed possibly mild intrahepatic bile duct dilation, possibly nonobstructive renal stones and some periportal edema. There is a single small gallstone in the dependent portion of the gallbladder. ASSESSMENT: 1. Right upper quadrant abdominal pain. 2. Elevated liver function tests. 3. Cholelithiasis. 4. Phenylketonuria (PKU). PLAN: The liver functions are elevated somewhat higher than when one would except with biliary colic even with an obstructive pattern with the bilirubin 3. There has been no history of significant risk exposure for hepatitis and there is no history for acetaminophen ingestion or alcohol. The plan will be to obtain an ultrasound this morning. If there is biliary obstruction, we will consider cholecystectomy with cholangiography and also consideration for gastroenterology consultation as early as tomorrow. [facility][id number] [facility]
--- NOTE | 2018-08-25 10:36 | US ---
EXAM DESCRIPTION: Abdomen,Complete CLINICAL HISTORY: rt uq abdm pain,elevated lft's COMPARISON: None Available. TECHNIQUE: Complete abdominal ultrasound FINDINGS: Visualized portions of the pancreas are unremarkable. No peripancreatic fluid. Bowel gas obscures some areas. Normal caliber of the aorta. Normal appearance of the inferior vena cava. Liver parenchyma is homogeneous in texture with normal echogenicity. No liver mass or intrahepatic bile duct dilatation. No liver surface irregularity. Normal appearance of hepatic veins and portal vein. Gallbladder appears mildly thick-walled with a small echogenic focus in the lumen measuring 4 mm. This could be a tiny polyp or small nonshadowing stone. Gallbladder wall thickening without significant distention is a nonspecific finding which may be related to liver disease, heart disease or kidney disease or hypoalbuminemia. Radionuclide hepatobiliary scan may be helpful to demonstrate cystic duct patency in clinically equivocal cases. Sonographic Jose sign was recorded as negative. Common bile duct is normal in caliber measuring 4.9 mm. The right kidney measures 10.7 cm in length. Normal renal cortical echogenicity. The renal cortical thickness appears normal. No right renal mass, shadowing stone or cyst. There is no hydronephrosis. Spleen is normal in size. No focal splenic lesion. The left kidney measures 10.8 cm in length. Normal renal cortical echogenicity. The renal cortical thickness appears normal. No left renal mass, shadowing stone or cyst. There is no hydronephrosis. IMPRESSION: Thick-walled gallbladder with tiny echogenic polyp or nonshadowing stone and negative sonographic Jose sign. See above. Electronically signed by: Jose Aiken MD 08/25/2018 10:34 AM CDT
[2018-08-25] MEDS ORDERED: SODIUM CHLORIDE 0.9% 100ML 100 ML IVPB ONE ×2 (11:39→19:19)
[2018-08-25] MEDS ORDERED: PIPERACILLIN/TAZOBACTAM 3.375 GM VIAL IVPB ONE ×2 (11:39→19:18)
[2018-08-25] MEDS: KCL 20MEQ/D5NS 1,000 ML IVS PRN (11:43)
[2018-08-25] MEDS: MORPHINE SULFATE INJ 10 MG/ML VIAL IV PRN ×2 (12:52→20:57)
--- NOTE | 2018-08-25 13:18 | PN ---
SUPERVISING PHYSICIAN: Tung Evans MD DATE: 08/25/18 SUBJECTIVE: The patient is lying in bed. She is awake. She has no complaints of nausea or vomiting. She does continue complaints of right upper quadrant pain although it is not as bad as it was. We discussed her medical history. She has not taken any unusual medications or drugs recently, but she did say her PKU medications were concerning for some liver damage, but she has been taking them for years and has had no problems with them. She also has had no unprotected sex or any other concerns that may cause her liver functions to rise. OBJECTIVE: VITAL SIGNS: Temperature 98.3. Heart rate 72. Blood pressure 110/75. Respiratory rate 16. O2 saturation 99% on room air. RESPIRATORY: Essentially clear to auscultation bilaterally. CARDIAC: Regular rate and rhythm. GASTROINTESTINAL: Abdomen is soft, nondistended. It is mildly tender in the right upper quadrant. Bowel sounds are positive. NEUROLOGIC: Awake, alert and oriented times three. LABORATORY: WBCs 4.9, hemoglobin 13, hematocrit 38.9. Electrolytes are basically within normal limits except for calcium slightly low at 8.1. Bilirubin 3, AST 1259, ALT 1464. Abdominal ultrasound shows thick walled gallbladder with tiny echogenic polyps or non-shadowing stone or negative sonographic Jose's sign. All other labs and films have been reviewed via the EMR. ASSESSMENT: 1. Cholelithiasis with a normal amylase and lipase. Her abdominal sonogram showed gallbladder wall thickening. 2. Elevated liver enzymes. Her liver enzymes iglesia exponentially overnight. 3. Phenylketonuria. requiring special medication. 4. Mild asthma, presently on no medications. 5. Seasonal allergies. PLAN: We will continue present supportive care. I spoke with Dr. Alegre this morning and he felt like although she does have thickened wall of her gallbladder and a possible stone, he felt her gallbladder was not the cause of her elevated liver function tests. He recommended that we consult GI tomorrow and I have consulted Dr. Hurtado tomorrow to see the patient. I have ordered some routine labs for in the morning. She will resume her diet. I have sent dietary to see her as she has special dietary needs due to her PKU. I will also discontinue her IV fluids and hopefully after she sees Dr. Hurtado tomorrow she can be discharged home with close followup with Dr. Alegre as well as her primary care physician, Dr. Evans. [facility][id number] [facility]
[2018-08-25] MEDS: SODIUM CHLORIDE 0.9% (FLUSH) 10 ML SYG IV PRN (20:59)
[2018-08-25] MEDS: ONDANSETRON INJ 4 MG/2 ML VIAL IV PRN (21:06)
[2018-08-26] MEDS ORDERED: PIPERACILLIN/TAZOBACTAM 3.375 GM VIAL IVPB ONE ×4 (02:39→23:04)
[2018-08-26] MEDS ORDERED: SODIUM CHLORIDE 0.9% 100ML 100 ML IVPB ONE ×4 (02:40→23:04)
[2018-08-26] MEDS: PIPERACILLIN/TAZOBACTAM 3.375 GM in SODIUM CHLORIDE 0.9% 100ML 100 ML IVPB SCH ×3 (03:20→19:30)
[2018-08-26] MEDS: SODIUM CHLORIDE 0.9% (FLUSH) 10 ML SYG IV PRN (03:20)
[2018-08-26] MEDS: MORPHINE SULFATE INJ 10 MG/ML VIAL IV PRN ×2 (07:57→13:28)
[2018-08-26] MEDS: ONDANSETRON INJ 4 MG/2 ML VIAL IV PRN ×2 (07:57→19:52)
[2018-08-26] MEDS: SODIUM CHLORIDE 0.9% (FLUSH) 10 ML SYG IV SCH ×2 (09:34→22:42)
[2018-08-26] MEDS: [UNRECOGNIZED DRUG - OTHER] PO SCH (10:12)
--- NOTE | 2018-08-26 13:17 | MRI ---
EXAM DESCRIPTION: MRI abdomen/MRCP CLINICAL HISTORY: Abdomen pain. Abnormal gallbladder sonogram. Cholelithiasis COMPARISON: None. TECHNIQUE: Multiplanar, multisequence MR images of the abdomen. 3-D MIPS FINDINGS: Wall thickening with diffuse edema throughout the gallbladder wall. The fluid signal intensity throughout the gallbladder wall is different on T1-weighted images compared to the intraluminal contents of the gallbladder which is slightly bright T1 likely related to the protein content of the bile. Previous CT demonstrated a couple of tiny calcifications along the wall of the gallbladder, small stones. There is also a tiny stone in the cystic duct on the previous CT series 2 image 24. This is seen on axial T2 series 501 image 20. No stone identified in the extrahepatic common bile duct. Normal tapering distally. Minimally prominent proximal intrahepatic ducts. No pancreatic duct dilation No focal hepatic parenchymal abnormality. Normal appearance of the spleen, pancreas, adrenal glands and kidneys No mass lesion or inflammatory process seen in the stomach or in the visualized small and large intestine IMPRESSION: Acute cholecystitis. Diffuse gallbladder wall edema. A tiny stone is seen in the cystic duct . Otherwise normal MRCP. No choledocholithiasis. Electronically signed by: Bala Rey MD 08/26/2018 1:14 PM CDT
--- NOTE | 2018-08-26 13:18 | CONS ---
DATE OF CONSULTATION: 08/26/18 CHIEF COMPLAINT: Right upper quadrant abdominal georges. REASON FOR CONSULTATION: Abnormal liver tests, right upper quadrant pain, abnormal imaging of the biliary tract. HISTORY OF PRESENT ILLNESS: This is a 38-year-old female who presented to the Emergency Room two days ago with right upper quadrant pain. The pain started at 5 AM that morning, woke her up from her sleep. It gradually got worse, described as a cramping pain. It was rated as severe. The pain did not radiate. It is was associated with nausea and vomiting. She denies fever, chills, change in bowel habits, melena, hematochezia or hematemesis. She had a prior episode approximately two weeks before where she presented to the Emergency Room and at that time, her workup was negative with normal labs. In the Emergency Room, she had elevated liver tests, AST 363, ALT 275, bilirubin 1.6. These numbers all escalated to AST and ALT above 1000 the next day, bilirubin 3. CT scan of the abdomen showed cholelithiasis, thickened gallbladder and mildly prominent intrahepatic and extrahepatic bile ducts. Ultrasound the next day showed a bile duct of 5 mm, single echogenic stone, gallbladder wall thickening, but a negative Jose's sign. General surgery with Dr. Alegre was consulted. He recommended GI evaluation. She has no prior admissions like this. She has no family history of liver disease. PAST MEDICAL HISTORY: 1. PKU. 2. Asthma. PAST SURGICAL HISTORY: 1. Tonsillectomy. CURRENT MEDICATIONS: 1. Kuvan. 2. [place]. ALLERGIES: NO KNOWN DRUG ALLERGIES. FAMILY HISTORY: She is adopted, so family history is unknown. SOCIAL HISTORY: She does not smoke, drink or do any drugs. She lives in [place]. REVIEW OF SYSTEMS: Ten-point review of systems was performed. It is negative except for as above in the history of present illness. PHYSICAL EXAMINATION: VITAL SIGNS: Temperature 98.1. Heart rate 74. Blood pressure 115/73. Respiratory rate 16. Oxygen saturation 97% on room air. GENERAL: No acute distress. HEENT: Normocephalic, atraumatic. Pupils equal and reactive. NECK: Supple without masses. RESPIRATORY: Clear to auscultation bilaterally. No rales or rhonchi. HEART: Regular rate and rhythm. No tachycardia. ABDOMEN: Soft. There is tenderness to palpation in the right upper quadrant without rebound or guarding. She has normoactive bowel sounds. EXTREMITIES: No cyanosis, clubbing or edema. NEUROLOGIC: She is alert and oriented times three. Cranial nerves II-XII are grossly intact. SKIN: Warm and dry. No evidence of jaundice. LABORATORY/IMAGING: Labs were reviewed per history of present illness. Is personally reviewed and interpreted her MRCP images. She has mild prominence of the bile duct at 6 mm at the level of the mid common bile duct. There is no filling defect, no evidence of choledocholithiasis. Her gallbladder does appear inflamed with diffuse gallbladder wall thickening. ASSESSMENT/PLAN: This is a 38-year-old female who was admitted with abnormal liver tests, cholelithiasis and mild prominence of the bile duct. I suspect she has acute cholecystitis and has recent biliary obstruction and has likely passed a gallstone. I recommend continued IV antibiotics, IV fluids. I spoke with Dr. Alegre and I recommend laparoscopic cholecystectomy with intraoperative cholangiogram. Other considerations include viral hepatitis. I agree with viral hepatitis serologies as already performed. The patient can followup in GI clinic one to two months after discharge here in [place]. #[id number] [facility]
[2018-08-26] MEDS ORDERED: LACTATED RINGERS 1,000 ML IVS PRN (13:40)
--- NOTE | 2018-08-26 21:31 | PN ---
DATE: 08/26/18 SUPERVISING PHYSICIAN: Fredi Evans M.D. SUBJECTIVE: The patient continues to be nauseated as well as have some mild right upper quadrant pain on palpation. She has been afebrile. She is reporting no diarrhea. No chest pains or shortness of breath. OBJECTIVE: VITAL SIGNS: Afebrile, temperature 98.5, pulse 83, blood pressure 113/73, respirations 16, satting 97% on room air. Weight is 98.5 kg. GENERAL: The patient does appear ill and uncomfortable due to some nausea. She is alert but appears to be in no acute distress. CHEST: Lungs were clear to auscultation bilaterally. HEART: regular rate and rhythm. ABDOMEN: Soft with some tenderness on palpation of the right upper quadrant. No rebound or guarding with normal bowel sounds. EXTREMITIES: Without any clubbing, cyanosis or edema. NEUROLOGIC: She is alert and oriented times three. SKIN: Warm and dry. No evidence of jaundice. LABORATORY: White count remains stable at 6,700, hemoglobin 12.7, hematocrit 39.0, platelet count 279,000. Differential shows to be without a left shift. Chemistries showed normal electrolytes with BUN 10, creatinine 0.7. Bilirubin is down to 2, AST is down to 419, ALT is down to 1101, alkaline phosphatase remains normal at 106. Hepatitis panel is pending. RADIOLOGY: Abdominal MRI status post MRCP per radiology interpretation shows acute cholecystitis with diffuse gallbladder wall thickening and tiny stones seen within the cystic duct. Otherwise normal MRCP. No choledocholithiasis. ASSESSMENT: 1. Acute cholecystitis as noted on MRCP. 2. Elevated liver enzymes likely due to passage of a stone with enzymes slowly returning to baseline levels. 3. History of phenylketonuria on Kuvan. 4. Mild asthma without any signs of exacerbation. 5. Seasonal allergies. PLAN: The patient was seen in consultation by both Dr. Alegre and Dr. Hurtado. Given the findings on MRCP, the plan is to do a laparoscopic cholecystectomy in the morning per Dr. Alegre. The patient will be on clear liquids tonight and then at midnight made NPO. Will recheck labs in the morning. Continue with IV fluids. Anticipate surgery in the morning. Until she can transition to outpatient management will continue to monitor and treat as needed. #[id number] [facility]
[2018-08-27] MEDS ORDERED: KCL 20MEQ/D5 1/2NS 1,000 ML IVS PRN (02:00)
[2018-08-27] MEDS: PIPERACILLIN/TAZOBACTAM 3.375 GM in SODIUM CHLORIDE 0.9% 100ML 100 ML IVPB SCH ×3 (03:02→21:03)
[2018-08-27] MEDS: MORPHINE SULFATE INJ 10 MG/ML VIAL IV PRN (03:52)
[2018-08-27] MEDS ORDERED: KETOROLAC TROMETHAMINE INJ 30 MG/ML VIAL ONE (07:00)
[2018-08-27] MEDS ORDERED: raNITIdine HCL INJ 25 MG/ML VIAL ONE (07:00)
[2018-08-27] MEDS ORDERED: METOCLOPRAMIDE HCL INJ 10 MG/2 ML VIAL ONE (07:00)
[2018-08-27] MEDS ORDERED: LIDOCAINE 1% 10 ML VIAL INJ ONE (07:00)
[2018-08-27] MEDS ORDERED: HYDROmorphone HCL INJ 2 MG/ML VIAL ONE (07:00)
[2018-08-27] MEDS ORDERED: PROPOFOL 200 MG/20 ML VIAL IV ONE (07:00)
[2018-08-27] MEDS ORDERED: DEXAMETHASONE INJ 10 MG/ML VIAL ONE (07:00)
[2018-08-27] MEDS ORDERED: HEPARIN SODIUM (PORCINE) 10,000 UNITS/ML VIAL ONE (08:43)
[2018-08-27] MEDS ORDERED: BUPIVACAINE 0.25% W/EPI 50 ML VIAL INJ ONE (08:43)
[2018-08-27] MEDS: SODIUM CHLORIDE 0.9% (FLUSH) 10 ML SYG IV SCH (09:11)
[2018-08-27] MEDS ORDERED: MIDAZOLAM INJ 5 MG/5 ML VIAL ONE (09:15)
[2018-08-27] MEDS ORDERED: fentaNYL CITRATE INJ 50 MCG/ML AMP ONE (09:16)
[2018-08-27] MEDS ORDERED: ROCURONIUM BROMIDE 10 MG/ML VIAL ONE (09:16)
[2018-08-27] MEDS ORDERED: ELECTROLYTE-A 1,000 ML IVS ONE (09:46)
[2018-08-27] MEDS: [UNRECOGNIZED DRUG - OTHER] PO SCH (10:19)
[2018-08-27] MEDS: PIPERACILLIN/TAZOBACTAM 3.375 GM VIAL IVPB ONE ×2 (10:30→11:25)
[2018-08-27] MEDS ORDERED: LACTATED RINGERS 1,000 ML ONE (10:52)
--- NOTE | 2018-08-27 11:00 | RAD ---
Intraoperative views from a cholangiogram. Indication: IOC Impression: Cannulation of the cystic duct demonstrates filling of the cystic duct, intrahepatic biliary ducts, common bile duct, and small bowel without obstruction or stricture. Fluoroscopy time 6 seconds. Images submitted 2 Electronically signed by: Geoff Kolb MD 08/27/2018 10:58 AM CDT
[2018-08-27] MEDS ORDERED: SUGAMMADEX SODIUM 200 MG/2 ML VIAL IV ONE (11:06)
[2018-08-27] MEDS ORDERED: HYDROcodone 5MG/APAP 325MG 1 EA TAB PO PRN (11:11)
[2018-08-27] MEDS: SODIUM CHLORIDE 0.9% 100ML 100 ML IVPB ONE ×2 (11:25→11:53)
[2018-08-27] MEDS: HYDROmorphone HCL INJ 2 MG/ML VIAL ONE ×5 (11:39→12:19)
--- NOTE | 2018-08-27 11:45 | OP ---
DATE OF PROCEDURE: 08/27/18 PREOPERATIVE DIAGNOSIS: 1. Acute cholecystitis and cholelithiasis. POSTOPERATIVE DIAGNOSIS: 1. Acute cholecystitis and cholelithiasis. PROCEDURE: 1. Laparoscopic cholecystectomy with intraoperative cholangiography using fluoroscopy. SURGEON: Arnel Alegre MD. INSURANCE BILLING CLERK: None. ANESTHESIA: Local infiltration of 0.25% Marcaine with epinephrine and general endotracheal anesthesia. INDICATION: The patient is a 38-year-old female who has had several weeks of episodic right upper quadrant pain. She was seen in the Emergency Room previously and had a normal ultrasound of the gallbladder. She was sent home. She re-presented with the same symptoms. CT scan showed a possible gallstone. She had elevated liver function tests. She was admitted and her bilirubin went up to 3 and her AST and ALT were both over 1000. She had no reasons to have hepatitis, however, those numbers were quite high despite the fact that she had an ultrasound showing normal bile duct except mildly dilated intrahepatic duct. GI consultation was obtained yesterday along with an MRCP which revealed no stones in the duct, but a thickened gallbladder wall with edema. The patient was brought to the Surgical Suite today for cholecystectomy after the risks, benefits and alternatives to the procedure were discussed with the patient and all questions were answered. FINDINGS: The gallbladder wall was thickened, it was bile stained, it was edematous. Intraoperative cholangiography revealed free flow into the duodenum with no filling defects or strictures noted. No other pathology was identified. DESCRIPTION OF PROCEDURE: After adequate general endotracheal anesthesia was obtained, the patient was prepped and draped in the usual sterile manner. Surgical time-out was taken. The infraumbilical area was infiltrated with local anesthesia. A curvilinear incision was fashioned and carried down through the subcutaneous tissue to the midline fascia. Traction sutures were placed on either side of the midline. A small incision was made in the midline fascia and the peritoneum was opened bluntly. Jazmyne trocar was introduced under direct vision into the abdominal cavity and fixed in place with the 20 mL balloon. CO2 was then insufflated until a pressure of 12 mmHg was reached and the abdomen was tympanitic in all four quadrants. When this was done, the laparoscope was introduced. The abdomen was inspected with the previously noted findings. The patient was then placed in reverse Trendelenburg position and turned to the left side. The upper abdominal ports were placed under direct vision. The gallbladder was grasped, retracted anteriorly and laterally. The triangle of Calot was explored with the cystic duct and cystic artery identified and isolated. The cystic duct was hemoclipped once proximally. The cystic artery was hemoclipped twice proximally and once distally. A small incision was made in the cystic duct. The cholangiogram catheter was introduced through a separate stab wound in the right upper quadrant, introduced into the cystic duct and clipped in place. Cholangiograms were then taken using fluoroscopy which revealed free flow into the duodenum with no filling defects or strictures noted. When this was done, the cystic duct catheter was removed. The cystic duct was hemoclipped three times distally and divided. The cystic artery was divided. A separate vessel was then noted on the lateral aspect of the gallbladder. This was clipped twice and divided. The gallbladder was then dissected free from the gallbladder bed of the liver using electrocautery. The gallbladder was removed from the infraumbilical port site in the usual manner under direct vision. When this was done, the subhepatic space and subphrenic space on the right were irrigated copiously with saline. The effluent was noted to be clear. The nikki hepatis was inspected and no bleeding or bile leak was identified. The gallbladder bed of the liver was inspected and there was no bleeding noted. At this point, the upper abdominal ports were removed under direct vision and good hemostasis was noted. At this point, the CO2, the laparoscope and the infraumbilical port were removed. The infraumbilical port site fascia was approximated with a single [id number] suture of 0 Vicryl. Subcutaneous tissue was irrigated with saline. Skin edges were approximated with 4-0 Vicryl subcuticular sutures, benzoin and Steri-Strips. Sterile dressings were applied. The patient was awakened and taken to the Recovery Room in good and stable condition. Estimated blood loss was less than 25 mL. All sponge, needle, instrument and port counts were correct. [id number]
[2018-08-27] MEDS ORDERED: ACETAMINOPHEN W/COD #3 TAB 1 EA TAB PO PRN (12:07)
[2018-08-27] MEDS: ONDANSETRON INJ 4 MG/2 ML VIAL IV PRN (13:03)
[2018-08-27 18:26] VITALS: TEMP 98.3; O2SAT 97
[2018-08-27 18:49] VITALS: BP 112/70
[2018-08-27] MEDS: IV SET AND CAP CHANGE INJ INJ SCH (21:03)
--- NOTE | 2018-08-28 11:08 | DS ---
SUPERVISING PHYSICIAN: Tung Evans MD ADMISSION DIAGNOSIS: 1. Cholelithiasis with a normal amylase and lipase. Her liver enzymes are slightly elevated. She has a normal white count but she does have a left shift on her differential. 2. Phenylketonuria requiring special medication. 3. Mild asthma presently on no medications. 4. Seasonal allergies. DISCHARGE DIAGNOSIS: 1. Acute cholecystitis as noted on MRCP, status post laparoscopic cholecystectomy, uncomplicated, showing improvement postoperatively. 2. Elevated liver enzymes possibly due to passage of a small stone with enzymes showing to be returning to baseline levels prior to discharge and having been seen in consultation by gastrointestinal specialist, Dr. Hurtado, to be followed up in the outpatient setting. 3. History of phenylketonuria on Kuvan, without any complications. 4. Mild asthma without any signs of exacerbation. 5. Seasonal allergies. REASON FOR HOSPITALIZATION: This is a 38 year-old female patient who presented to the Emergency Room secondary to right upper quadrant pain that started early this morning about 5:00 AM. She had actually been in the Emergency Room about 2 weeks ago and had similar complaints. At that time her sonogram was negative and she also had about 3 to 4 episodes. When she came to be Emergency Room this time, it started early this morning and the pain did not go away. She had some nausea without vomiting. There was no fever or chills. The right upper quadrant of her abdomen was quite tender with stabbing-like pains. In the E. R., her lab was done and WBCs were 10.5 with hemoglobin 13.6, hematocrit 40.8. She did have a left shift on her differential. Chemistries showed sodium 134, potassium 3.7, chloride 103, calcium 8.6. Total bilirubin was 1.6, AST 363, ALT 275, amylase 48 and lipase 35. Urinalysis was unremarkable. Abdominal x-ray showed no acute findings. CT of the abdomen showed cholelithiasis. The gallbladder was otherwise unremarkable by CT criteria. Correlation with sonogram could be helpful. She was given some Zosyn as well as some fluids. She was also given 1 IV injection of Toradol as well as some morphine. The Emergency Room doctor called Dr. Alegre and he said he would see the patient in consultation. The patient was admitted in stable condition. CONSULTATIONS: 1. GI consultation by Dr. Hurtado, please see his note for details. 2. Surgical consultation by Dr. Alegre, please see his note for details. PROCEDURE: 1. Laparoscopic cholecystectomy, please see Dr. Alegre's operative note for details. LABORATORY: White count on admission was 10,500. At discharge, it was 6,700. Hemoglobin 12.7, hematocrit 39.0. No left shift noted at discharge. Platelet count within normal limits at 279,000. Chemistries on admission showed sodium 134. Electrolytes were within normal limits at discharge except for just mildly low potassium at 3.5. BUN 8, creatinine 0.76, calcium 8.2. She did have an elevated total bilirubin, initially it was 1.6 and went up to maximum of 3.0 and on last blood draw was returning to baseline levels at 1.3. She did show a peak in her liver enzymes with AST up to 1259 and ALT up to 1464 with both levels returning to baseline levels. Amylase and lipase were normal. Serum HCG was negative. Urinalysis was within normal limits. She had a hepatitis panel, viral study pending. MICROBIOLOGY: No specimens were submitted. She had multiple imaging studies done. First was an abdominal x-ray in the Emergency Room which per radiologic interpretation showed no acute findings. This was followed up with abdominopelvic CT with contrast and per radiologic interpretation showed cholelithiasis. Gallbladder otherwise unremarkable by CT. This was then followed up with abdominal ultrasound which per radiologic interpretation showed thick-walled gallbladder with tiny echogenic polyp or nonshadowing stone and negative sonographic Jose sign. This was then followed up with MRCP showing acute cholecystitis, diffuse gallbladder edema, tiny stone seen within the cystic duct. Otherwise, normal MRCP. There was no choledocholithiasis. She had intraoperative imaging study during her laparoscopic cholecystectomy with a cholangiogram that per radiologic interpretation showed filling of the cystic duct, intrahepatic biliary ducts, common bile duct and small bowel without obstruction or strictures. DISCHARGE EXAMINATION: VITAL SIGNS: Temperature 98.3. Pulse 74. Blood pressure 112/70. Respirations 16. Saturation 97% on room air. GENERAL APPEARANCE: The patient was without any acute distress. She looked comfortable. She is alert. CHEST: Clear to auscultation. HEART: Regular rate and rhythm. ABDOMEN: Tender to touch over surgical incision sites from laparoscopic procedure. Soft, positive bowel sounds. EXTREMITIES: No edema. NEUROLOGIC: Alert and oriented x3. HOSPITAL COURSE: Ms. Villalta was admitted initially on 08/24/18 with right upper quadrant pain. She was extensively worked up. She had two medical consultations, first with Dr. Alegre, surgical, and second with gastrointestinal specialist, Dr. Hurtado. She was treated with antibiotics with Zosyn for concerns for possible acute cholecystitis although her white count never did show. Her enzymes did go up with concern that she might have passed a gallstone. Therefore, she was followed up with MRCP. Findings suggested acute cholecystitis. After discussing with the family and the patient, Dr. Alegre was to perform a laparoscopic cholecystectomy, which was done without any complications. At that point, she was transferred back to the Unit, recovered and found to be stable. She was tolerating a diet. She was ambulating. She no longer had any nausea and was having no concerning pains and expected pain was controlled with Tylenol #3. It was felt she had clinically improved well enough and was stable postoperatively to discharge home to continue with outpatient management. PLAN: Ms. Villalta was discharged on 08/27/18 with instructions to followup with Dr. Alegre in the office as scheduled on 09/07/18 at 10:30 AM and to call Dr. Evans's office to schedule followup appointment in 1 to 2 weeks. She was to resume her usual medications. She was encouraged to push fluids to prevent dehydration. She was noting that she was just fixing to start her menstrual cycle which she notes on the first 2 to 3 days is very crampy like and asked if she could take Motrin at which time she was instructed she could utilize Motrin for her menstrual cramps or any similar ibuprofen [id number] medications and could supplement as needed alternating with Tylenol #3. She was to told to resume her usual diet, low fat preferred, and advance slowly. She was to increase her activity as tolerated, but no exercising, lifting until seen in followup by Dr. Alegre. She was to shower only, no tub baths. She was given warnings to return to the hospital should she have any worsening or concerning symptoms. MEDICATIONS AT DISCHARGE: 1. Tylenol #3, 1 or 2 tablets q.4h. as 0needed for pain. Prescription provided by Dr. Alegre. No other new medications were started. All medications prior to hospitalization were resumed. CONDITION AT DISCHARGE: Stable and improved. DISPOSITION: The patient was discharged to care of family members and her . [id number]
== END 2018-08-27 20:50 | disposition home or self-care (01) ==
LOC: ER 13:39 → INTOOBSV 17:41 → MS 17:41
PROVIDERS: ADMIT Nurse Practitioner Acute Care; ATTEND Nurse Practitioner Family
DX: K81.2 Acute cholecystitis with chronic cholecystitis (principal); R74.8 Abnormal levels of other serum enzymes; E87.6 Hypokalemia; R11.2 Nausea with vomiting, unspecified; E70.1 Other hyperphenylalaninemias; J45.909 Unspecified asthma, uncomplicated; Z79.899 Other long term (current) drug therapy
CPT/HCPCS: 96366 ×4; 96367; 96365; 96375 ×2; 96376 ×4; J3010; J1644; J1170 ×2; J1885 ×6; J2765; J2270 ×6; J2405 ×4; J2543 ×10; J3490; J7030; J2250; J1100; J2780; J7050 ×10; J7120 ×2; 80053 ×4; 36415 ×4; 82150; 80074; 81001; 85025 ×3; 84703; 83690; 83735; 74019; 76000; 74177; 76700; 94760 ×5; 99285; 74181; G0378; 47563; 00790